=== PATIENT | female | born 2000 | race Hispanic/Latino ===

== ENCOUNTER 2018-08-04 13:59 | Emergency (ER) | payer MEDICAID, OTHER ==
[2018-08-04 14:15] VITALS: O2SAT 100
--- NOTE | 2018-08-04 14:32 | ED PDOC ---
HPI: Female Pain Time Seen by Provider: 08/04/18 14:22 Chief Complaint (Nursing): Female Genitourinary Chief Complaint (Provider): Female Genitourinary History Per: Patient History/Exam Limitations: no limitations Onset/Duration Of Symptoms: Days Current Symptoms Are (Timing): Still Present Additional Complaint(s): 17 y/o female presents to the ED for evaluation of abdominal pain associated with vaginal bleeding, onset two weeks ago. Patient reports of menstruating last week for about one week ago. Patient notes vaginal bleeding returned. Patient states she has been using 2 - 3 pads a day for the past two days. Patient reports of having a D&C last year due to a miscarriage. Patient denies taking any medications for symptom relief. PMD: Non [facility] Provider Abnormal Vaginal Bleeding: Yes Last Menstral Period: 2-3 weeks ago Miscarriage: 1 Past Medical History Reviewed: Historical Data, Nursing Documentation, Vital Signs Vital Signs: Last Vital Signs Temp 98.3 F 08/04/18 14:11 Pulse 80 08/04/18 14:11 Resp 16 08/04/18 14:11 BP 105/67 08/04/18 14:11 Pulse Ox 100 08/04/18 14:11 - Medical History PMH: Asthma - Surgical History Other surgeries: D&C s/p miscarriage - Family History Family History: States: Unknown Family Hx - Immunization History Hx Tetanus Toxoid Vaccination: No Hx Influenza Vaccination: No Hx Pneumococcal Vaccination: No - Home Medications Home Medications: Ambulatory Orders Medication Instructions Recorded Control Pills 04/14/18 Nitrofurantoin Macrocrystals 100 mg PO BID #14 cap 04/14/18 [Macrobid] - Allergies Allergies/Adverse Reactions: Allergies Allergy/AdvReac Type Severity Reaction Status Date / Time shrimp Allergy Unknown Verified 04/14/18 12:09 lactose AdvReac Severe Verified 04/14/18 12:09 Review of Systems ROS Statement: Except As Marked, All Systems Reviewed And Found Negative Gastrointestinal: Positive for: Abdominal Pain Genitourinary Female: Positive for: Vaginal Bleeding Physical Exam - Reviewed Nursing Documentation Reviewed: Yes Vital Signs Reviewed: Yes - Physical Exam Appears: Positive for: No Acute Distress Head Exam: Positive for: ATRAUMATIC, NORMOCEPHALIC Skin: Positive for: Normal Color, Warm, Dry Eye Exam: Positive for: Normal appearance Neck: Positive for: Normal Cardiovascular/Chest: Negative for: Bradycardia, Tachycardia Respiratory: Negative for: Decreased Breath Sounds, Respiratory Distress Gastrointestinal/Abdominal: Positive for: Tenderness (bilateral lower quadrant tenderness) Back: Positive for: Normal Inspection. Negative for: L CVA Tenderness, R CVA Tenderness Extremity: Positive for: Normal ROM. Negative for: Deformity Neurological/Psych: Positive for: Awake, Alert, Oriented (x3). Negative for: Motor/Sensory Deficits - ECG O2 Sat by Pulse Oximetry: 100 (RA) Pulse Ox Interpretation: Normal Medical Decision Making Medical Decision Making: Time: 1426 Impression: Vaginal Bleeding and Abdominal Pain Plan: -- CMP -- ED Urine -- ED Urine Dipstick -- CBC with Differentials -- Motrin 600 mg PO -- Urinalysis -- US Transvaginal Scribe Attestation: Documented by Chino Randolph, acting as a scribe for Sandra Zabala MD. Provider Scribe Attestation: All medical record entries made by the Scribe were at my direction and personally dictated by me. I have reviewed the chart and agree that the record accurately reflects my personal performance of the history, physical exam, medi jr decision making, and the department course for this patient. I have also personally directed, reviewed, and agree with the discharge instructions and disposition. Disposition - Disposition
[2018-08-04 14:45] LABS: BASO # 0.1 K/uL (0.0-0.2); EOS # 0.1 K/uL (0.0-0.7); EOS % 2.1 % (0.0-4.0); HEMOGLOBIN 12.8 g/dL (12.0-16.0); LYMPH # 2.2 K/uL (1.0-4.3); LYMPH % 32.9 % (20.0-40.0); MEAN CELL VOLUME 82.6 fl (81.0-99.0); MEAN CORPUSCULAR HEMOGLOBIN 27.1 pg (27.0-31.0); MEAN CORPUSCULAR HGB CONC 32.8 g/dL (33.0-37.0); MEAN PLATELET VOLUME 8.9 fl (7.2-11.7); MONO # 0.5 K/uL (0.0-0.8); MONO % 7.2 % (0.0-10.0); NEUT # 3.7 K/uL (1.8-7.0); NEUT % 56.8 % (50.0-75.0); NRBC % 0.1 % (0.0-0.0); RBC 4.72 Mil/uL (3.80-5.20); RED CELL DISTRIBUTION WIDTH 14.5 % (11.5-14.5); WHITE BLOOD COUNT 6.6 K/uL (4.8-10.8)
[2018-08-04 14:55] LABS: ALB/GLOB RATIO 1.3 (1.0-2.1); ALBUMIN 4.7 g/dL (3.5-5.0); ALT/SGPT 24 U/L (9-52); AST/SGOT 24 U/L (14-36); BLOOD UREA NITROGEN 9 mg/dl (7-17); CALCIUM 9.3 mg/dL (8.4-10.2); GFR NON-AFRICAN AMERICAN > 60
--- NOTE | 2018-08-04 15:11 | ED PDOC ---
- Laboratory Results Result Diagrams: 08/04/18 14:40 08/04/18 14:40 Lab Results: Total Bilirubin 0.3 mg/dl (0.2-1.3) 08/04/18 14:40 AST 24 U/L (14-36) 08/04/18 14:40 ALT 24 U/L (9-52) 08/04/18 14:40 Alkaline Phosphatase 77 U/L (38-126) 08/04/18 14:40 Total Protein 8.4 G/DL (6.3-8.2) H 08/04/18 14:40 Albumin 4.7 g/dL (3.5-5.0) 08/04/18 14:40 Globulin 3.7 gm/dL (2.2-3.9) 08/04/18 14:40 Albumin/Globulin Ratio 1.3 (1.0-2.1) 08/04/18 14:40 - ECG O2 Sat by Pulse Oximetry: 100 (RA) Pulse Ox Interpretation: Normal Medical Decision Making Medical Decision Making: Time: 1500 Patient endorsed to provider from Sandra Zabala MD. Pending US. Time: 1600 Labs were viewed, no clinically significant abnormalities. Discussed with yan rdz lab findings. Patient stable at this time. Still pending US. Time: 1613 FINDINGS: UTERUS: Measures 5.5 x 2.7 x 4.6 cm. Normal in size and appearance. No fibroid or other mass lesion seen. ENDOMETRIUM: Measures 1.3 mm in diameter. Unremarkable. CERVIX: No cervical abnormality identified. RIGHT OVARY: Measures 3.0 x 1.6 x 2.4 cm. No solid mass. Normal flow. LEFT OVARY: Measures 3.2 x 1.5 x 2.7 cm. No solid mass. Normal flow. FREE FLUID: No significant free fluid noted. OTHER FINDINGS: None. IMPRESSION: Unremarkable pelvic ultrasound. DW pt findings and plan of care. nsaids, f/u employment recruiter. Scribe Attestation: Documented by Anthony Moses, acting as a scribe Nelda Encarnacion MD. Provider Scribe Attestation: All medical record entries made by the Scribe were at my direction and personally dictated by me. I have reviewed the chart and agree that the record accurately reflects my personal performance of the history, physical exam, medical decision making, and the department course for this patient. I have also personally directed, reviewed, and agree with the discharge instructions and disposition. Disposition - Clinical Impression Clinical Impression: Abnormal vaginal bleeding - POA Present On Arrival: None - Disposition Referrals: [facility] [Outside] (FOLLOW UP WITH YOUR WAREHOUSE TRAFFIC SUPERVISOR OR THE CLINIC IN 2-3 DAYS) Disposition: Routine/Home Disposition Time: 17:00 Condition: STABLE Prescriptions: Ibuprofen [Motrin Tab] 600 mg PO Q8 PRN #30 tab PRN Reason: Pain, Moderate (4-7) Instructions: Dysfunctional Uterine Bleeding (ED)
[2018-08-04 15:24] LABS: SQUAMOUS EPITHIAL 2 /hpf (0-5); URINE BILIRUBIN NEGATIVE (NEGATIVE); URINE BLOOD LARGE (NEGATIVE); URINE CLARITY SLIGHTY-CLOUDY (Clear); URINE COLOR YELLOW (YELLOW); URINE GLUCOSE (UA) NEG (NEGATIVE); URINE LEUKOCYTE ESTERASE NEG Leu/uL (Negative); URINE PROTEIN NEGATIVE (NEGATIVE); URINE UROBILINOGEN 0.2-1.0 mg/dL (0.2-1.0)
--- NOTE | 2018-08-04 16:16 | US ---
Date of service: 08/04/2018 HISTORY: Suprapubic pain, vaginal bleeding COMPARISON: None available. TECHNIQUE: Transvaginal sonographic evaluation of the pelvis performed. FINDINGS: UTERUS: Measures 5.5 x 2.7 x 4.6 cm. Normal in size and appearance. No fibroid or other mass lesion seen. ENDOMETRIUM: Measures 1.3 mm in diameter. Unremarkable. CERVIX: No cervical abnormality identified. RIGHT OVARY: Measures 3.0 x 1.6 x 2.4 cm. No solid mass. Normal flow. LEFT OVARY: Measures 3.2 x 1.5 x 2.7 cm. No solid mass. Normal flow. FREE FLUID: No significant free fluid noted. OTHER FINDINGS: None. IMPRESSION: Unremarkable pelvic ultrasound.
[2018-08-04 18:53] VITALS: BP 137/68; PULSE 73; RESP 17; TEMP 98.1
== END 2018-08-04 18:06 | disposition home or self-care (01) ==
LOC: H.ER 13:59
DX: N93.9 Abnormal uterine and vaginal bleeding, unspecified (principal)